=== PATIENT | male | born 1995 | race African-American/Black ===

== ENCOUNTER 2017-01-01 17:02 | Emergency (ER) | payer SELFPAY ==
[~2017-01-01] VITALS: Ht 193 cm; Wt 66.2 kg
[~2017-01-01 17:02] MED LIST: DEXA4TAB PO
[2017-01-01 17:46] VITALS: BP 118/63
[2017-01-01] MEDS ORDERED: IBUPROFEN 800 MG TABLET. PO ONE (18:45)
[2017-01-01] MEDS ORDERED: AMOX500C PO (18:46)
--- NOTE | 2017-01-01 18:47 | PHYS DOC ---
Past Medical History Past Medical History: Other Additional Past Medical Histor: strep Past Surgical History: Other Additional Past Surgical Histo: fx repain right femur Alcohol Use: None Drug Use: None Adult General Chief Complaint Chief Complaint: SORE THROAT HPI HPI Patient is a 21 year old male presents emergency department stating that he has had a sore throat fever and chills last 2-3 days. He states his been taken ibuprofen for the discomfort. He states that he has white exudate noted on the left tonsil. He denies any difficulty with swallowing except for hurts to swallow. He denies any nausea or vomiting. Review of Systems Review of Systems Constitutional: Denies fever or chills [] Eyes: Denies change in visual acuity, redness, or eye pain [] HENT: Denies nasal congestion C/o sore throat [] Respiratory: Denies cough or shortness of breath [] Cardiovascular: No additional information not addressed in HPI [] GI: Denies abdominal pain, nausea, vomiting, bloody stools or diarrhea [] : Denies dysuria or hematuria [] Musculoskeletal: Denies back pain or joint pain [] Integument: Denies rash or skin lesions [] Neurologic: Denies headache, focal weakness or sensory changes [] Endocrine: Denies polyuria or polydipsia [] Allergies Allergies Allergies Coded Allergies Type Severity Reaction Last Updated Verified No Known Drug Allergies 07/06/15 No Physical Exam Physical Exam Constitutional: Well developed, well nourished, no acute distress, non-toxic appearance. [] HENT: Normocephalic, atraumatic, bilateral external ears normal, oropharynx moist, no oral exudates, nose normal. Lateral tympanic membranes appear to be normal. Throat with exudate noted on the left tonsil. No uvula deviation noted. No erythematous noted. Eyes: PERRLA, EOMI, conjunctiva normal, no discharge. [] Neck: Normal range of motion, no tenderness, supple, no stridor. [] Cardiovascular:Heart rate regular rhythm, no murmur [] Lungs & Thorax: Bilateral breath sounds clear to auscultation [] Skin: Warm, dry, no erythema, no rash. [] Back: No tenderness Extremities: No tenderness, no cyanosis, no clubbing, ROM intact, no edema. [] Neurologic: Alert and oriented X 3, normal motor function, normal sensory function, no focal deficits noted. [] Psychologic: Affect normal, judgement normal, mood normal. [] Current Patient Data Vital Signs Vital Signs Date Time Temp Pulse Resp B/P (MAP) Pulse Ox O2 Delivery O2 Flow Rate FiO2 01/01/17 17:46 100.2 81 20 96 Room Air 100.2 EKG EKG [] Radiology/Procedures Radiology/Procedures [] Course & Med Decision Making Course & Med Decision Making Pertinent Labs and Imaging studies reviewed. (See chart for details) Patients rapid strep was negative. Although he has a large amount exudate of the left tonsil he will be provided with amoxicillin for infection. Recommended ibuprofen 800 mg every 8 hours with food stop taking few develop an upset stomach. Patient will be discharged home with recommendations to drink plenty of fluids such as water or Gatorade or propel. Signs and symptoms to return back to emergency department as been provided. Patient agrees with discharge instructions treatment regimens and follow-up recommendations. [] Dragon Disclaimer Dragon Disclaimer This electronic medical record was generated, in whole or in part, using a voice recognition dictation system. Departure Departure Impression: Primary Impression: Pharyngitis Disposition: HOME, SELF-CARE Condition: STABLE Referrals: ELY RAYA MD (PCP) Patient Instructions: Viral and Bacterial Pharyngitis, [id number] Additional Instructions: Your rapid strep was negative for strep throat. Medications as prescribed. Ibuprofen or Tylenol for pain and discomfort. Drink plenty of fluids such as water Gatorade or propel. Follow-up primary care physician next 7-10 days. Return back to emergency prior signs symptoms become worse. Scripts Amoxicillin (AMOXICILLIN) 500 Mg Capsule 1 CAP PO BID, #20 CAP Prov: YAMEL [employer] 01/01/17 Y[employer]EL [employer] January 01, 2017 18:47
[2017-01-02 08:27] LABS: NEGATIVE OBC STREP NEG; POSITIVE OBC STREP POS
== END 2017-01-01 19:14 | disposition home or self-care (01) ==
LOC: ER 17:02
DX: J02.9 Acute pharyngitis, unspecified (principal)
CPT/HCPCS: 87070; 87880; 99283